=== PATIENT | male | born 1990 | race African-American/Black ===

== ENCOUNTER 2019-02-18 19:21 | Emergency (ER) | payer OTHER ==
[~2019-02-18] VITALS: Ht 198.1 cm; Wt 97.5 kg
[2019-02-18] MEDS ORDERED: IBUPROFEN 800800 M1 PO (20:33)
[2019-02-18 20:50] VITALS: BP 131/90
== END 2019-02-18 20:52 | disposition home or self-care (01) ==
LOC: ER 19:21
DX: S16.1XXA Strain of muscle, fascia and tendon at neck level, initial encounter (principal); S60.222A Contusion of left hand, initial encounter; V89.2XXA Person injured in unspecified motor-vehicle accident, traffic, initial encounter; Y93.89 Activity, other specified; Y92.488 Other paved roadways as the place of occurrence of the external cause; Y99.8 Other external cause status